=== PATIENT | male | born 1965 | race Caucasian/White ===

== ENCOUNTER 2023-10-22 19:04 | Outpatient (REF) | payer SELFPAY ==
[2023-10-22 21:59] LABS: ALT 38 U/L (16-63); AST 24 U/L (15-37); Alkaline Phosphatase 54 U/L (46-116); Anion Gap 8.2 mmol/L (3-11); BUN 18 mg/dL (7-18); Bilirubin, Total 0.48 mg/dL (0.2-1.0); CO2 25.8 mmol/L (21.0-32.0); CREATININE 1.3 mg/dL (0.70-1.30); Calcium 9.3 mg/dL (8.5-10.1); Calculated LDL 162 mg/dL (<100); Chloride 106 mmol/L (98-107); Cholesterol 251 mg/dL (<200); Estimated GFR 63.68 (mL/min/1.73m2); Glucose 95 mg/dL (74-106); HDL Cholesterol 57 mg/dL (40-60); Potassium 4.1 mmol/L (3.5-5.1); Sodium 140 mmol/L (136-145); Total Protein 7.2 g/dL (6.4-8.2); Triglyceride 164 mg/dL (<150)
[2023-10-25 09:38] LABS: PSA, Diagnostic 1.2 ng/mL (<=3.5)
== END 2023-10-22 19:05 | disposition home or self-care (01) ==
LOC: NCHCN 19:04
PROVIDERS: PCP Family Medicine; Visit Provider Family Medicine
DX: I10 Essential (primary) hypertension (principal); E78.5 Hyperlipidemia, unspecified; E55.9 Vitamin D deficiency, unspecified; N40.0 Benign prostatic hyperplasia without lower urinary tract symptoms
CPT/HCPCS: 80053; 80061; 82306; 84153

== ENCOUNTER 2024-09-18 09:46 | Outpatient (REF) | payer SELFPAY ==
[2024-09-18 15:22] LABS: Abs Immature Grans 0.01 10^3/uL (0.0-0.06); Absolute Basophil Count 0.05 10^3/uL (0.0-0.2); Absolute Eosinophil Count 0.15 10^3/uL (0.0-0.7); Absolute Lymphocyte Count 1.76 10^3/uL (1.2-3.4); Absolute Monocyte Count 0.38 10^3/uL (0.1-0.8); Absolute Neutrophil Count 2.92 10^3/uL (1.2-6.7); Basophils % 0.9 %; Eosinophils % 2.8 %; HCT 43.9 % (40.0-50.0); HGB 14.6 g/dL (13.5-17.5); Immature Grans % 0.2 %; Lymphocytes % 33.4 %; MCHC 33.3 % (32.0-36.0); MCV 90 fL (80-95); MPV 10.9 fL (8.0-11.0); Monocytes % 7.2 %; Neutrophils % 55.5 %; Platelet Count 233 10^3/uL (130-400); RBC 4.87 10^6/uL (4.36-5.78); RDW 13.2 % (11.8-14.1); RDW-SD 43.5 fL; WBC 5.27 10^3/uL (4.4-10.8)
[2024-09-18 16:42] LABS: ALT 37 U/L (16-63); AST 27 U/L (15-37); Albumin 3.9 g/dL (3.4-5.0); Alkaline Phosphatase 55 U/L (46-116); Anion Gap 9.9 mmol/L (3-11); BUN 17 mg/dL (7-18); Bilirubin, Total 0.8 mg/dL (0.2-1.0); CO2 26.1 mmol/L (21.0-32.0); Calcium 9.1 mg/dL (8.5-10.1); Calculated LDL 169 mg/dL (<100); Chloride 105 mmol/L (98-107); Cholesterol 243 mg/dL (<200); Glucose 103 mg/dL (74-106); HDL Cholesterol 52 mg/dL (>or=40); Potassium 4.6 mmol/L (3.5-5.1); Sodium 141 mmol/L (136-145); TSH (W/Ref FT4) 1.72 uIU/mL (0.36-3.74); Triglyceride 112 mg/dL (<150)
[2024-09-18 22:55] LABS: PSA, Diagnostic 1.3 ng/mL (<=3.5)
== END 2024-09-18 09:47 | disposition home or self-care (01) ==
LOC: NCHCN 09:46
PROVIDERS: PCP Family Medicine; Visit Provider Family Medicine
DX: I10 Essential (primary) hypertension (principal); N40.0 Benign prostatic hyperplasia without lower urinary tract symptoms; E78.5 Hyperlipidemia, unspecified; R00.2 Palpitations
CPT/HCPCS: 80053; 80061; 84153; 84443; 85025